=== PATIENT | female | born 1955 | race Caucasian/White ===

== ENCOUNTER → 2016-12-23 | Outpatient (CLI) | payer MEDICAID ==
[~2016-12-23] MED LIST: AMBIEN 10MG10 MG PO; AMBIEN10 MG PO; ATIVAN 0.50.5 MG/TAB PO; CALCITRIOL PO; CETIRIZINE; CLONAZEPAM0.125 MG PO; CLOPIDOGREL; CYMBALTA; CYMBALTA 30MG30 MG PO; DESYREL 100MG100 MG PO; DESYREL 50MG50 MG PO; EPA-CON500 MG PO; FAZACLO PO; FLEXERIL 1010 MG/TAB PO; FLEXERIL10 MG PO; FOLIC ACID 11 MG/TA1 PO; GRALISE600 MG PO; K-DUR 10 MEQ T10 MEQ PO; KLONOPIN 0.5MG0.5 MG PO; KLOR-CON M2020 MEQ PO; LAMICTAL150 MG PO; LEVOXYL0.1 MG PO; LIPITOR 80MG80 MG PO; MAGOX 400241.3 MG; METHOTREXA2.5 MG/TAB PO; MOBIC15 MG PO; MOBIC7.5 M1 PO; MYSOLINE 5050 MG/TAB PO; MYSOLINE50 MG PO; NEURONTIN300 MG PO; NEURONTIN300 MG/CAP PO; NEURONTIN600 MG/TAB PO; NIASPAN750 MG PO; NORCO 325 MG-101 TAB PO; NORCO 325 MG-51 TAB; OMEGA 31000 MG PO; OSCAL 500 TAB500 MG PO; OXYCONTIN 20MG20 MG PO; PEN-VEE K500 MG PO; PERCOCET 325 MG1 TA2 PO; PERCOCET 325 MG1 TAB PO; PHENERGAN25 MG RC; PLAQUENIL 200M200 MG PO; PLAVIX 75MG TAB75 MG PO; PREDNISONE20 MG PO; PRILOSEC 20MG20 MG PO; PRILOSEC10 MG PO; ROXICODONE30 MG PO; RT ADVAIR 228 DISKUS IH; S-2 INHALANT2.25%; SAVELLA100 MG PO; SIMVISTATIN; SKELAXIN 4400 MG/TAB PO; SKELAXIN 800MG800 MG PO; TRAZADONE HYDR100 MG PO; TRICOR145 MG PO; TYLENOL 325MG325 MG PO; ULTRAM 50MG TAB50 MG PO; VENTOLIN0.09 MG IH; VESICARE 5MG5 MG PO; VITAMIN D 1001000 IU PO; ZANTAC; ZANTAC 150MG T150 MG PO; ZANTAC 300300 MG PO; ZESTRIL 10MG10 MG PO; ZOCOR; ZOFRAN 4MG T4 MG/TAB PO; ZYRTEC 10MG10 MG PO; [UNRECOGNIZED DRUG - OTHER] PO
== END ==
LOC: MC.RAD 13:17
DX: Z12.31 Encounter for screening mammogram for malignant neoplasm of breast (principal)

== ENCOUNTER 2017-06-27 12:05 | Day surgery (SDC) | payer MEDICAID ==
[~2017-06-27] VITALS: Ht 165.1 cm; Wt 70.2 kg
[2017-06-27] MEDS ORDERED: DAZIDOX10 MG PO (12:21)
[2017-06-27] MEDS ORDERED: OXYCONTIN30 MG PO (12:21)
[2017-06-27 12:32] VITALS: BP 138/92; PULSE 85; TEMP 98.1
[2017-06-27 14:45] VITALS: BP 111/56; PULSE 87; TEMP 98
[2017-06-27 15:00] VITALS: BP 110/67; PULSE 76
[2017-06-27 15:15] VITALS: BP 128/80; PULSE 84
== END 2017-06-27 15:30 | disposition home or self-care (01) ==
LOC: SDCO 12:05
DX: K63.5 Polyp of colon (principal); K57.30 Diverticulosis of large intestine without perforation or abscess without bleeding; K64.0 First degree hemorrhoids; J44.9 Chronic obstructive pulmonary disease, unspecified; G47.33 Obstructive sleep apnea (adult) (pediatric); I10 Essential (primary) hypertension; K21.9 Gastro-esophageal reflux disease without esophagitis; M19.90 Unspecified osteoarthritis, unspecified site; Z88.6 Allergy status to analgesic agent; Z90.49 Acquired absence of other specified parts of digestive tract; Z79.01 Long term (current) use of anticoagulants; Z80.0 Family history of malignant neoplasm of digestive organs
CPT/HCPCS: OP; J2704; J7030

== ENCOUNTER → 2017-07-26 | Outpatient (CLI) | payer MEDICAID ==
[~2017-07-26] MED LIST changes: +DAZIDOX10 MG PO; +OXYCONTIN30 MG PO
== END ==
LOC: COL.RAD 08:15
DX: R74.8 Abnormal levels of other serum enzymes (principal)
CPT/HCPCS: A9585

== ENCOUNTER → 2017-12-21 | Outpatient (CLI) | payer MEDICAID ==
[~2017-12-21] MED LIST changes: +CALCIUM 600/VIT1 CAP PO; +FLAGYL500 MG PO; +SYNTHROID0.1 MG/TAB PO
== END ==
LOC: COL.PUL 11:19
DX: J43.8 Other emphysema (principal); R68.3 Clubbing of fingers; Z72.0 Tobacco use

== ENCOUNTER → 2017-12-22 | Outpatient (CLI) | payer MEDICAID ==
[2017-12-22] VITALS (12 sets, daily range): BP systolic 112–150; BP diastolic 77–86; PULSE 73–86
[~2017-12-22] VITALS: Ht 165.1 cm; Wt 67.0 kg
[2017-12-22 09:51] LABS: PROTHROMBIN TIME 11.5 SECONDS (9.7-12.8)
== END ==
LOC: COL.RAD 09:00
PROVIDERS: Nurse Practitioner Family
DX: R74.8 Abnormal levels of other serum enzymes (principal)
CPT/HCPCS: 25757

== ENCOUNTER 2019-04-02 06:04 | Day surgery (SDC) | payer MEDICAID ==
[2019-04-02] VITALS (11 sets, daily range): BP systolic 90–115; BP diastolic 57–85; PULSE 90–100; TEMP 98.8
[~2019-04-02] VITALS: Ht 165.2 cm; Wt 70.0 kg
[~2019-04-02 06:04] MED LIST changes: +D-2000 90 MG-201 TAB PO; +PROVENTIL0.09 MG/A1 IH
[2019-04-02 06:51] LABS: HEMOGLOBIN 13.5 g/dl (12.5-16.0); MEAN CELL VOLUME 90 fl (80.0-100.0); MEAN CORPUSCULAR HEMOGLOBIN 31 pg (27.0-31.0); MEAN CORPUSCULAR HGB CONC 34 g/dl (33.0-37.0); MEAN PLATELET VOLUME 10.2 fl (7.4-10.4); PLATELET COUNT 157 K/mm3 (130-400); RED BLOOD COUNT 4.43 M/mm3 (4.10-5.30); REDCELL DISTRIBUTION WIDTH-CV 13.8 % (11.5-14.5)
[2019-04-02 06:57] LABS: INR 1.1 (0.8-3.0); PROTHROMBIN TIME 12.4 SECONDS (9.7-12.8)
[2019-04-02 07:00] LABS: PARTIAL THROMBOPLASTIN TIME 38.9 SECONDS (26.0-37.0)
[2019-04-02 07:01] LABS: CALCIUM 7.7 mg/dL (8.4-10.2); CREATININE, serum 1.42 (0.52-1.25); POTASSIUM 4.1 mmol/L (3.4-5.0)
[2019-04-02] MEDS ORDERED: OXYCONTIN 20MG20 MG PO (07:07)
[2019-04-02] MEDS ORDERED: ANORO IH (07:09)
[2019-04-02] MEDS ORDERED: ARMONAIR RESPI55 MCG IH (07:10)
[2019-04-02] MEDS ORDERED: NYSTATIN POWDER30 GM TOP (07:11)
[2019-04-02] MEDS ORDERED: NARCAN4 MG NS (07:12)
[2019-04-02] MEDS ORDERED: NEXIUM 40MG40 MG PO (07:13)
[2019-04-02] MEDS ORDERED: KLOR-CON 1010 MEQ PO (07:14)
--- NOTE | 2019-04-02 08:50 | NUR ---
pt recieved from rn labor delivery via bed, family with her. pt is alert, no c/o, reviewed bedrest inst. with pt with verbal understanding. iv infusing at 200cc/hr. pt sips on coffee
--- NOTE | 2019-04-02 08:59 | NUR ---
PT [facility] TO [facility] FROM [facility] LAUNCH ROCKET SYSTEM CREWMEMBER AT THIS TIME. VS MONITORS CONNECTED; ALL VS'S WNL AT THIS TIME. PT A&O X3. IV FLUIDS RUNNING AT 200ML/HR PER DR NICHOLS. BEDSIDE HANDOFF TO GEORGE MARTIN AT THIS TIME. RIGHT FEMORAL ACCESS SITE ASSESSED; SITE FOUND WITHOUT BLEEDING, OOZING, BRUISING. SOFT TO PALPATION. DP PULSE +2 ON RIGHT FOOT. NO S/SX OF IMPAIRED CIRCULATION NOTED. EDUCATION PROVIDED TO PT ABOUT FLAT TIME AND MOVEMENT RESTRICTIONS. ALL QUESTIONS ANSWERED AT THIS TIME.
--- NOTE | 2019-04-02 09:35 | NUR ---
NEW ORDER RECIEVED FOR PAIN MED DUE TO BACK PAIN, PT RATES 5-6. OXYCODONE 10MG PO GIVEN. FAMILY IN ROOM, WATCHES TV
--- NOTE | 2019-04-02 11:00 | NUR ---
HOB elevated 30 degrees, tolerates well, pt states back pain at 3/10 now and feels better.
--- NOTE | 2019-04-02 11:30 | NUR ---
pt amb. in room, up to b/r, voided, site remains the same. Pt sits up, reviewed discharge inst. with her and [id number], on activity, site care, med list, precautions and 2 followup appts made in April for Dr Jackson and Dr James as ordered, with verbal understanding
--- NOTE | 2019-04-02 11:53 | NUR ---
int d'cd intact, pt is up in room dressed, discharged via w/c to car
== END 2019-04-02 11:54 | disposition home or self-care (01) ==
LOC: COL.CAR 06:04
PROVIDERS: Internal Medicine Interventional Cardiology
DX: I70.1 Atherosclerosis of renal artery (principal); N27.0 Small kidney, unilateral; R25.2 Cramp and spasm; E03.9 Hypothyroidism, unspecified; I71.4 Abdominal aortic aneurysm, without rupture; I73.9 Peripheral vascular disease, unspecified; K74.60 Unspecified cirrhosis of liver; J44.9 Chronic obstructive pulmonary disease, unspecified; N18.9 Chronic kidney disease, unspecified; Z90.49 Acquired absence of other specified parts of digestive tract; Z79.02 Long term (current) use of antithrombotics/antiplatelets; Z79.51 Long term (current) use of inhaled steroids; Z82.49 Family history of ischemic heart disease and other diseases of the circulatory system; Z80.0 Family history of malignant neoplasm of digestive organs; Z87.891 Personal history of nicotine dependence; Z88.5 Allergy status to narcotic agent
CPT/HCPCS: J1644; J2250; J3010; Q9967

== ENCOUNTER → 2019-05-22 | Outpatient (CLI) | payer MEDICAID ==
[~2019-05-22] MED LIST changes: +ANORO IH; +ARMONAIR RESPI55 MCG IH; +KLOR-CON 1010 MEQ PO; +NARCAN4 MG NS; +NEXIUM 40MG40 MG PO; +NYSTATIN POWDER30 GM TOP
== END ==
LOC: COL.RAD 11:30
DX: I65.23 Occlusion and stenosis of bilateral carotid arteries (principal); J43.9 Emphysema, unspecified
CPT/HCPCS: Q9967

== ENCOUNTER 2019-05-23 12:13 | Inpatient (IN) | payer MEDICAID ==
[2019-05-23] VITALS (274 sets, daily range): BP systolic 99–105; BP diastolic 53–66; PULSE 87–94; TEMP 97.5–98.4; O2SAT 70–100
[~2019-05-23] VITALS: Ht 165.1 cm; Wt 66.8 kg
[2019-05-23 12:46] LABS: HEMATOCRIT 38.8 % (37.0-47.0); HEMOGLOBIN 13.2 g/dl (12.5-16.0); MEAN CELL VOLUME 87 fl (80.0-100.0); MEAN CORPUSCULAR HEMOGLOBIN 30 pg (27.0-31.0); MEAN CORPUSCULAR HGB CONC 34 g/dl (33.0-37.0); MEAN PLATELET VOLUME 10.1 fl (7.4-10.4); PLATELET COUNT 145 K/mm3 (130-400); RED BLOOD COUNT 4.48 M/mm3 (4.10-5.30); REDCELL DISTRIBUTION WIDTH-CV 21.2 % (11.5-14.5)
[2019-05-23 12:54] LABS: INR 1.3 (0.8-3.0); PROTHROMBIN TIME 14.9 SECONDS (9.7-12.8)
[2019-05-23 13:05] LABS: BAND 14 % (0-10); EOSINOPHIL 1 % (0-4); LYMPHOCYTE 22 % (20.0-51.0); NEUTROPHILS 61 % (42.0-75.2); PLATELET ESTIMATE NORMAL (NORMAL)
[2019-05-23 13:06] LABS: ALANINE AMINOTRANSFERASE 14 U/L (9-52); ALBUMIN 2.4 gm/dL (3.5-5.0); ANION GAP 9 mmol/L (7-16); AST,SGOT 140 U/L (15-37); BILIRUBIN,TOTAL 2.4 mg/dL (0.0-1.0); BLOOD UREA NITROGEN 19 mg/dL (7-17); CALCIUM 7.8 mg/dL (8.4-10.2); CARBON DIOXIDE 17 mmol/L (22-30); CHLORIDE 104 mmol/L (98-107); CREATININE, serum 1.68 (0.52-1.25); GLUCOSE 70 mg/dL (74-106); POTASSIUM 4.2 mmol/L (3.4-5.0); SODIUM 130 mmol/L (137-145); TOTAL PROTEIN 7.3 gm/dL (6.4-8.2)
[2019-05-23 13:14] LABS: ALKALINE PHOSPHATASE 1031 U/L (50-136)
[2019-05-23 13:17] LABS: TROPONIN-I < 0.012 ng/mL (0.000-0.035)
--- NOTE | 2019-05-23 14:55 | NUR ---
PT ARRIVED FROM ER WITH COPD. PT ON OXYMASK. PT TRANSFERED TO ICU BED. PT PLACED ON ICU MONITORS. PT SHOWING SR. PT IS AXOX4. PT SATING LOW 90S. PT ORIENTED TO ROOM AND FLOOR
--- NOTE | 2019-05-23 16:30 | NUR ---
PRESENT ON THE FLOOR. PT NOTIFIED OF CONSULT. STATES HE WILL SEE IN THE AM.
[2019-05-23 18:48] LABS: ARTERIAL BLD GAS O2 SATURATION 96.9 % (92-100); ARTERIAL BLD GAS TCO2 CT 18.1; ARTERIAL BLOOD GAS BASE EXCESS -5.9 (-2-2); ARTERIAL BLOOD GAS HCO3 17.3 meq/L (22-26); ARTERIAL BLOOD GAS PCO2 27.4 mmHg (35-45); ARTERIAL BLOOD GAS pH 7.42 (7.35-7.45)
--- NOTE | 2019-05-23 19:35 | NUR ---
Report received from GEORGE Pierre.
--- NOTE | 2019-05-23 20:30 | NUR ---
Pt sitting up in bed eating dinner. Pt on 4L/oxymask, O2sat 90-92%. Assessment completed. Discussed POC r/t bipap mask, labs and medications on shift. Pt verbalized understanding. Call light in reach.
--- NOTE | 2019-05-23 22:00 | NUR ---
Pt back on bipap per request. VSS. Pt resting in bed. Lights dim in room. Call light in reach.
--- NOTE | 2019-05-23 23:10 | NUR ---
Bipap mask off, pt N/V. small amt emesis. Warm washcloth on pt's forehead for comfort. PRN zofran offered. Pt refuses zofran stating it makes her feel sick. Pt only request washcloth at this time. Pt placed on 4L/hiflow NC. O2sat low 90s.
[2019-05-24] VITALS (550 sets, daily range): BP systolic 99–118; BP diastolic 58–72; PULSE 84–99; TEMP 97–98; O2SAT 46–100
--- NOTE | 2019-05-24 00:15 | NUR ---
Pt watching tv in bed. States she can't fall back asleep. Pt up to [facility] with stand by assist. Steady gait. Pt unable to void at this time. Pt back to bed. Lights dim in room. Call light in reach.
[2019-05-24 04:31] LABS: ALBUMIN 2.4 gm/dL (3.5-5.0); BILIRUBIN,TOTAL 1.2 mg/dL (0.0-1.0); CALCIUM 7.3 mg/dL (8.4-10.2); CREATININE, serum 1.67 (0.52-1.25); POTASSIUM 4.2 mmol/L (3.4-5.0); TOTAL PROTEIN 7.2 gm/dL (6.4-8.2)
[2019-05-24 04:37] LABS: BASO % 0.2 % (0.0-2.0); GRAN % 71.5 % (42.2-75.2); HEMOGLOBIN 11.3 g/dl (12.5-16.0); LYMPH # 1.4 (1.2-3.4); LYMPH % 24.9 % (20.0-51.0); MEAN CELL VOLUME 88 fl (80.0-100.0); MEAN CORPUSCULAR HEMOGLOBIN 29 pg (27.0-31.0); MEAN CORPUSCULAR HGB CONC 33 g/dl (33.0-37.0); MEAN PLATELET VOLUME 10.4 fl (7.4-10.4); MONO # 0.1 (0.1-0.6); PLATELET COUNT 152 K/mm3 (130-400); RED BLOOD COUNT 3.88 M/mm3 (4.10-5.30); REDCELL DISTRIBUTION WIDTH-CV 21.2 % (11.5-14.5)
--- NOTE | 2019-05-24 08:00 | NUR ---
LAB NOTIFIED THAT 05/16 BC RETURNED POSITIVE FOR STAPH SPECIES. WILL NOTIFY DR STARKEY.
--- NOTE | 2019-05-24 08:00 | NUR ---
Report given to GEORGE Hernandez.
--- NOTE | 2019-05-24 08:45 | NUR ---
PT'S O2 SAT CONSISTENTLY <88% ON 4L HFNC. PT'S MOST RECENT PCO2 LOW AT 27.4. PT'S O2 INCREASED TO 5LHFNC. O2 SAT AFTER TITRATION 89%
[2019-05-24 08:56] LABS: CHOLESTEROL RISK RATIO 10.4
[2019-05-24 09:39] LABS: ARTERIAL BLD GAS O2 SATURATION 88.6 % (92-100); ARTERIAL BLD GAS TCO2 CT 17.4; ARTERIAL BLOOD GAS BASE EXCESS -7.2 (-2-2); ARTERIAL BLOOD GAS HCO3 16.6 meq/L (22-26); ARTERIAL BLOOD GAS PCO2 28.3 mmHg (35-45); ARTERIAL BLOOD GAS PO2 56.6 mmHg (80-100); ARTERIAL BLOOD GAS pH 7.39 (7.35-7.45)
--- NOTE | 2019-05-24 09:48 | NUR ---
DR SHANKS PRESENT IN IMCU. PROVIDER NOTIFIED OF CONSULT.
--- NOTE | 2019-05-24 09:54 | NUR ---
ACCORDING TO RECENT ABG PT'S O2 INCREASED TO 6LHFNC. DR STARKEY WOULD LIKE PATIENT TO BE SWITCHED TO AIRVO D/T PO2 OF 56.6.
--- NOTE | 2019-05-24 10:13 | NUR ---
DR SHANKS PRESENT TO ASSESS PATIENT.
--- NOTE | 2019-05-24 10:24 | NUR ---
DR SHANKS RECOMMENDS TO D/C IVF D/T FLUID OVERLOAD. DR SHANKS WOULD LIKE PATIENT TO RECEIVE DOSE OF LASIX.
--- NOTE | 2019-05-24 11:33 | NUR ---
Initial visit; Patient and her daughter thanked Auto Service Instructor for looking in on her and offering comfort and prayer and letting her know she will be offered Holy Communion while she is hospitalized.
--- NOTE | 2019-05-24 11:35 | NUR ---
CONTACTED DR DOMINGUEZ OFFICE PER DR NANCE TO OBTAIN BASELINE LIVER ENZYME LEVELS. NO ANSWER FROM NURSE'S PHONE. LEFT VOICEMAIL.
--- NOTE | 2019-05-24 11:40 | NUR ---
MURPHY tyson attended clinical rounds with the team. Nephrology consulted. After rounds MURPHY tyson met with the patient and the patient's [id number], Kayla to complete initial intake. MURPHY tyson obtained patient's permission to have Kayla present during intake. The patient lives alone in [place] but reports she has family living within a few blocks of her home and she states, "I really do not live alone someone comes to my house everyday." The patient uses oxygen (supplies from [employer]) at night and with excertion. The patient informed MURPHY tyson that she needed more oxygen at home. MURPHY tyson contacted [employer] and they will bring tanks to the patient's room to take home. The patient's PCP is Dr. Robles and patient receives medications from [facility] with no difficulties. The patient does not have advanced directives in the EMR but reports has them completed. However, she wants to update them. DPOA-HC form provided. The patient has transportation home at discharge. customer services manager will continue to follow to ensure a safe discharge.
--- NOTE | 2019-05-24 11:41 | NUR ---
KARLA, NURSE WITH DR DOMINGUEZ, RETURNED PHONE CALL AND IS GOING TO FAX OVER PATIENT'S RECENT LAB WORK TO ESTABLISH BASELINE FOR LIVER FUNCTION.
--- NOTE | 2019-05-24 12:32 | NUR ---
DR STARKEY AND DR SHANKS NOTIFIED OF MOST RECENT LACTIC ACID OF 4.4. DR STARKEY WOULD LIKE A VBG, INITIATE SEPSIS PROTOCOL, AND TO CLEAR WITH DR SHANKS FOR PATIENT TO GET A PICC LINE. DR SHANKS AGREEABLE TO PICC LINE. CHHAYA ORNELAS NOTIFIED.
[2019-05-24 15:42] LABS: ANION GAP 10 mmol/L (7-16); BLOOD UREA NITROGEN 23 mg/dL (7-17); CARBON DIOXIDE 17 mmol/L (22-30); CHLORIDE 107 mmol/L (98-107); CREATININE, serum 1.64 (0.52-1.25); GLUCOSE 136 mg/dL (74-106); POTASSIUM 3.8 mmol/L (3.4-5.0); SALICYLATE 1.1 mg/dL; SODIUM 133 mmol/L (137-145)
[2019-05-24 15:53] LABS: TROPONIN-I < 0.012 ng/mL (0.000-0.035)
--- NOTE | 2019-05-24 17:45 | NUR ---
DR STARKEY NOTIFIED OF PATIENT'S LACTIC ACID COMING BACK AT 4.[address] STARKEY WANTS TO REPEAT LACTIC AND ABG AT 1999. RT NOTIFIED. DR STARKEY ALSO WANTS NIGHT HOSPITALIST MADE AWARE. JEREMY CALLED AND UPDATED.
--- NOTE | 2019-05-24 19:50 | NUR ---
Patient assessment completed and charted at this time, please see documentation for details. Patient resting in bed, family at bedside. Patient tolerating AirVo well, states she is able to breath easier. Patient has no additional concerns to report at this time, no further questions.
[2019-05-24 20:36] LABS: ARTERIAL BLD GAS O2 SATURATION 91.7 % (92-100); ARTERIAL BLD GAS TCO2 CT 17.5; ARTERIAL BLOOD GAS BASE EXCESS -8.6 (-2-2); ARTERIAL BLOOD GAS HCO3 16.5 meq/L (22-26); ARTERIAL BLOOD GAS PCO2 32.7 mmHg (35-45); ARTERIAL BLOOD GAS PO2 67.2 mmHg (80-100); ARTERIAL BLOOD GAS pH 7.32 (7.35-7.45)
[2019-05-24 23:06] LABS: ARTERIAL BLD GAS O2 SATURATION 97.5 % (92-100); ARTERIAL BLD GAS TCO2 CT 18.4; ARTERIAL BLOOD GAS BASE EXCESS -8.2 (-2-2); ARTERIAL BLOOD GAS HCO3 17.3 meq/L (22-26); ARTERIAL BLOOD GAS PCO2 35.6 mmHg (35-45); ARTERIAL BLOOD GAS PO2 102.5 mmHg (80-100); ARTERIAL BLOOD GAS pH 7.31 (7.35-7.45)
[2019-05-25] VITALS (437 sets, daily range): BP systolic 91–124; BP diastolic 55–82; PULSE 79–93; TEMP 97.7–98.1; O2SAT 73–100
[2019-05-25 01:12] LABS: ARTERIAL BLD GAS O2 SATURATION 95.4 % (92-100); ARTERIAL BLD GAS TCO2 CT 18.7; ARTERIAL BLOOD GAS HCO3 17.5 meq/L (22-26); ARTERIAL BLOOD GAS PCO2 35.9 mmHg (35-45); ARTERIAL BLOOD GAS PO2 81.4 mmHg (80-100); ARTERIAL BLOOD GAS pH 7.31 (7.35-7.45)
[2019-05-25 07:11] LABS: ALBUMIN 2.2 gm/dL (3.5-5.0); BILIRUBIN,TOTAL 0.8 mg/dL (0.0-1.0); CALCIUM 6.8 mg/dL (8.4-10.2); CREATININE, serum 1.56 (0.52-1.25); POTASSIUM 3.9 mmol/L (3.4-5.0); TOTAL PROTEIN 6.7 gm/dL (6.4-8.2)
[2019-05-25 07:29] LABS: ARTERIAL BLD GAS O2 SATURATION 91.3 % (92-100); ARTERIAL BLOOD GAS BASE EXCESS -8.3 (-2-2); ARTERIAL BLOOD GAS HCO3 17.4 meq/L (22-26); ARTERIAL BLOOD GAS PCO2 36.6 mmHg (35-45); ARTERIAL BLOOD GAS pH 7.29 (7.35-7.45)
[2019-05-25 12:00] LABS: ARTERIAL BLD GAS TCO2 CT 16.6; ARTERIAL BLOOD GAS BASE EXCESS -10.2 (-2-2); ARTERIAL BLOOD GAS HCO3 15.5 meq/L (22-26); ARTERIAL BLOOD GAS PCO2 33.9 mmHg (35-45); ARTERIAL BLOOD GAS pH 7.28 (7.35-7.45)
[2019-05-25 12:49] LABS: BASO % 0.1 % (0.0-2.0); GRAN # 10.4 (1.4-6.5); LYMPH # 0.6 (1.2-3.4); LYMPH % 5.6 % (20.0-51.0); MEAN CELL VOLUME 91 fl (80.0-100.0); MEAN CORPUSCULAR HGB CONC 33 g/dl (33.0-37.0); MEAN PLATELET VOLUME 10.4 fl (7.4-10.4); MONO # 0.4 (0.1-0.6); MONO % 3.6 % (1.7-9.3); PLATELET COUNT 152 K/mm3 (130-400); REDCELL DISTRIBUTION WIDTH-CV 21.7 % (11.5-14.5)
[2019-05-25 12:53] LABS: HEMOGLOBIN 9.5 g/dl (12.5-16.0); MEAN CORPUSCULAR HEMOGLOBIN 30 pg (27.0-31.0)
[2019-05-25 14:19] LABS: INR 1.2 (0.8-3.0); PROTHROMBIN TIME 14.1 SECONDS (9.7-12.8)
--- NOTE | 2019-05-25 14:52 | NUR ---
Dr. Mak called and message left with call back numer to notify of consult.
--- NOTE | 2019-05-25 17:14 | NUR ---
Dr. Mak returns call regarding consult and update provided.
[2019-05-25 21:26] LABS: CALCIUM 6.5 mg/dL (8.4-10.2); CREATININE, serum 1.6 (0.52-1.25); MAGNESIUM 1.7 mg/dL (1.6-2.3); PHOSPHOROUS 4.2 mg/dL (2.5-4.5); POTASSIUM 4.1 mmol/L (3.4-5.0)
[2019-05-25 21:58] LABS: ARTERIAL BLD GAS O2 SATURATION 93.2 % (92-100); ARTERIAL BLD GAS TCO2 CT 18.4; ARTERIAL BLOOD GAS BASE EXCESS -7.8 (-2-2); ARTERIAL BLOOD GAS HCO3 17.4 meq/L (22-26); ARTERIAL BLOOD GAS PCO2 34.3 mmHg (35-45); ARTERIAL BLOOD GAS PO2 68.2 mmHg (80-100); ARTERIAL BLOOD GAS pH 7.32 (7.35-7.45)
[2019-05-26] VITALS (741 sets, daily range): BP systolic 101–119; BP diastolic 61–64; PULSE 78–90; TEMP 97.4–98.1; O2SAT 38–100
[2019-05-26 04:51] LABS: ARTERIAL BLD GAS O2 SATURATION 94.9 % (92-100); ARTERIAL BLD GAS TCO2 CT 22.2; ARTERIAL BLOOD GAS BASE EXCESS -4.7 (-2-2); ARTERIAL BLOOD GAS HCO3 20.9 meq/L (22-26); ARTERIAL BLOOD GAS PCO2 40.7 mmHg (35-45); ARTERIAL BLOOD GAS PO2 78.9 mmHg (80-100); ARTERIAL BLOOD GAS pH 7.33 (7.35-7.45)
[2019-05-26 05:30] LABS: BASO % 0.1 % (0.0-2.0); GRAN # 6.8 (1.4-6.5); GRAN % 85.3 % (42.2-75.2); LYMPH # 0.6 (1.2-3.4); LYMPH % 7.7 % (20.0-51.0); MEAN CELL VOLUME 90 fl (80.0-100.0); MEAN CORPUSCULAR HGB CONC 33 g/dl (33.0-37.0); MEAN PLATELET VOLUME 10.3 fl (7.4-10.4); MONO # 0.5 (0.1-0.6); MONO % 6.1 % (1.7-9.3); PLATELET COUNT 141 K/mm3 (130-400); RED BLOOD COUNT 3.17 M/mm3 (4.10-5.30); REDCELL DISTRIBUTION WIDTH-CV 21.9 % (11.5-14.5)
[2019-05-26 05:33] LABS: HEMATOCRIT 28.4 % (37.0-47.0); HEMOGLOBIN 9.3 g/dl (12.5-16.0); MEAN CORPUSCULAR HEMOGLOBIN 29 pg (27.0-31.0)
[2019-05-26 05:41] LABS: ALBUMIN 2.3 gm/dL (3.5-5.0); BILIRUBIN,TOTAL 1.1 mg/dL (0.0-1.0); CALCIUM 6.5 mg/dL (8.4-10.2); CREATININE, serum 1.66 (0.52-1.25); POTASSIUM 3.9 mmol/L (3.4-5.0); TOTAL PROTEIN 6.5 gm/dL (6.4-8.2)
[2019-05-26 05:46] LABS: INR 1.3 (0.8-3.0); PROTHROMBIN TIME 15.6 SECONDS (9.7-12.8)
[2019-05-27] VITALS (398 sets, daily range): BP systolic 108–125; BP diastolic 63–76; PULSE 79–104; TEMP 97.3–97.9; O2SAT 74–100
[2019-05-27 05:16] LABS: ARTERIAL BLD GAS O2 SATURATION 95.3 % (92-100); ARTERIAL BLOOD GAS BASE EXCESS -4.7 (-2-2); ARTERIAL BLOOD GAS HCO3 20.7 meq/L (22-26); ARTERIAL BLOOD GAS PCO2 39.7 mmHg (35-45); ARTERIAL BLOOD GAS PO2 77.5 mmHg (80-100); ARTERIAL BLOOD GAS pH 7.34 (7.35-7.45)
[2019-05-27 05:17] LABS: MEAN CELL VOLUME 91 fl (80.0-100.0); MEAN CORPUSCULAR HGB CONC 32 g/dl (33.0-37.0); MEAN PLATELET VOLUME 10.9 fl (7.4-10.4); PLATELET COUNT 145 K/mm3 (130-400); RED BLOOD COUNT 3.26 M/mm3 (4.10-5.30); REDCELL DISTRIBUTION WIDTH-CV 21.9 % (11.5-14.5)
[2019-05-27 05:18] LABS: HEMATOCRIT 29.8 % (37.0-47.0); HEMOGLOBIN 9.5 g/dl (12.5-16.0); MEAN CORPUSCULAR HEMOGLOBIN 29 pg (27.0-31.0)
[2019-05-27 05:26] LABS: ALBUMIN 2.6 gm/dL (3.5-5.0); BILIRUBIN,TOTAL 1.4 mg/dL (0.0-1.0); CREATININE, serum 1.79 (0.52-1.25); POTASSIUM 4.3 mmol/L (3.4-5.0); TOTAL PROTEIN 6.7 gm/dL (6.4-8.2)
[2019-05-27 05:32] LABS: INR 1.3 (0.8-3.0); PROTHROMBIN TIME 14.8 SECONDS (9.7-12.8)
[2019-05-27 06:15] LABS: ANISOCYTOSIS 3+; BAND 9 % (0-10); LYMPHOCYTE 7 % (20.0-51.0); METAMYELOCYTE 1 % (0-0); NEUTROPHILS 81 % (42.0-75.2); PLATELET ESTIMATE NORMAL (NORMAL)
[2019-05-27 06:16] LABS: OVALOCYTES 1+; TARGET CELLS 1+
--- NOTE | 2019-05-27 12:40 | NUR ---
Report called to GEORGE Silva.
--- NOTE | 2019-05-27 13:08 | NUR ---
LICENSED PHYSICAL THERAPY ASSISTANT student attended clinical rounds with the team. The patient reports that [employer] delivered her oxygen tanks on Monday, 05/24. The patient is to transfer out of ICU to the floor this day.
[2019-05-28] VITALS (7 sets, daily range): BP systolic 100–149; BP diastolic 34–73; PULSE 92–104; TEMP 97.6–97.9
--- NOTE | 2019-05-28 03:12 | NUR ---
PATIENT DOING WELL TONIGHT. C/O BACK PAIN, PRN JORGE AND SCHEDULED OXYCONTIN GIVEN. O2 INFUSING VIA AIRVO MANAGED BY RT. TOOK SCHEDULED MEDICATIONS PRESCRIBED. DID NOT NEED ANY INSULIN, WBG 139. PICC TO CHRISTOPH FLUSHED WITH GOOD BLOOD RETURN. DID HAVE SOME NAUSEA, AND WAS FOUND DRY HEAVING IN ROOM. NO VOMITING NOTED. PRN ZOFRAN PUSHED, PATIENT FEELING MUCH BETTER. NO FURTHER NEEDS AT THIS TIME. WILL CONTINUE TO MONITOR.
[2019-05-28 06:28] LABS: MEAN CELL VOLUME 91 fl (80.0-100.0); MEAN CORPUSCULAR HGB CONC 33 g/dl (33.0-37.0); MEAN PLATELET VOLUME 10.8 fl (7.4-10.4); PLATELET COUNT 147 K/mm3 (130-400); RED BLOOD COUNT 3.17 M/mm3 (4.10-5.30); REDCELL DISTRIBUTION WIDTH-CV 21.7 % (11.5-14.5)
[2019-05-28 06:32] LABS: HEMATOCRIT 28.7 % (37.0-47.0); HEMOGLOBIN 9.4 g/dl (12.5-16.0); MEAN CORPUSCULAR HEMOGLOBIN 30 pg (27.0-31.0)
[2019-05-28 07:45] LABS: ANISOCYTOSIS 2+; BAND 6 % (0-10); LYMPHOCYTE 7 % (20.0-51.0); METAMYELOCYTE 3 % (0-0); NEUTROPHILS 72 % (42.0-75.2); TARGET CELLS 1+
[2019-05-28 07:46] LABS: PLATELET ESTIMATE NORMAL (NORMAL)
[2019-05-28 07:54] LABS: ALBUMIN 2.5 gm/dL (3.5-5.0); BILIRUBIN,TOTAL 1.5 mg/dL (0.0-1.0); CALCIUM 7.1 mg/dL (8.4-10.2); CREATININE, serum 1.68 (0.52-1.25); POTASSIUM 3.7 mmol/L (3.4-5.0); TOTAL PROTEIN 6.4 gm/dL (6.4-8.2)
--- NOTE | 2019-05-28 19:50 | NUR ---
Shift assessment complete. Pt resting in bed, awake, a&o, cooperative c cares. Pt reports continued chronic back pain rated 8/10; PRN pain caregivers non medical per pt request. Pt denies any other c/o. Airvo in place, pt christian well. Tele in place. PICC noted to R upper arm, patenet c good blood return from both ports. Pt denies further needs. Call light in reach, will continue to monitor.
[2019-05-29] VITALS (7 sets, daily range): BP systolic 104–133; BP diastolic 51–81; PULSE 72–104; TEMP 97.7–99.1
[2019-05-29 05:33] LABS: MEAN CELL VOLUME 91 fl (80.0-100.0); MEAN CORPUSCULAR HGB CONC 33 g/dl (33.0-37.0); MEAN PLATELET VOLUME 9.6 fl (7.4-10.4); PLATELET COUNT 121 K/mm3 (130-400); REDCELL DISTRIBUTION WIDTH-CV 21.7 % (11.5-14.5)
[2019-05-29 05:34] LABS: HEMATOCRIT 27.2 % (37.0-47.0); MEAN CORPUSCULAR HEMOGLOBIN 30 pg (27.0-31.0)
[2019-05-29 05:43] LABS: ALBUMIN 2.3 gm/dL (3.5-5.0); BILIRUBIN,TOTAL 1.5 mg/dL (0.0-1.0); CALCIUM 7.2 mg/dL (8.4-10.2); CREATININE, serum 1.56 (0.52-1.25); POTASSIUM 3.4 mmol/L (3.4-5.0); TOTAL PROTEIN 6.1 gm/dL (6.4-8.2)
[2019-05-29 05:48] LABS: ARTERIAL BLD GAS O2 SATURATION 88.9 % (92-100); ARTERIAL BLD GAS TCO2 CT 26.4; ARTERIAL BLOOD GAS BASE EXCESS 1.1 (-2-2); ARTERIAL BLOOD GAS HCO3 25.2 meq/L (22-26); ARTERIAL BLOOD GAS PCO2 37.9 mmHg (35-45); ARTERIAL BLOOD GAS PO2 54.1 mmHg (80-100); ARTERIAL BLOOD GAS pH 7.44 (7.35-7.45)
[2019-05-29 06:04] LABS: ANISOCYTOSIS 2+; BAND 7 % (0-10); LYMPHOCYTE 9 % (20.0-51.0); METAMYELOCYTE 4 % (0-0); NEUTROPHILS 77 % (42.0-75.2); NUCLEATED RED BLOOD CELL 1 (0-6); PLATELET ESTIMATE DECREASED (NORMAL)
--- NOTE | 2019-05-29 09:44 | NUR ---
Pt assessment completed and charted. Pt A&O, sitting in bed, independent in room. Pt currently on 15L on airvo, breathing is even and unlabored at rest, labored after walking w/ therapy. UL bilaterally clear, LL bilaterally diminished. Pt c/o chronic back pain, rating it 7/10, requesting pain medication. Morning medications administered per JUL, PRN pain medication administered. Pt has CHRISTOPH PICC, both ports flush well w/ good blood return. Pulses strong bilaterally. BLE 1-2+ edema noted. BUE bruising noted from blood draws. Pt denies any chest pain, N/V/D. No other concerns expressed at this time. Call light within reach.
--- NOTE | 2019-05-29 16:30 | NUR ---
Pt requesting pain medication, rating pain at 8/10. Per pt oxycodone works better. Pt is A&O, sitting in bed. Denies other needs at this time. Family at bedside.
--- NOTE | 2019-05-29 16:50 | NUR ---
W[employer] Plant Supervisor met with patient to review PT/OT recommendation for SNF or Home Health. Patient states she does not want to go to a SNF but was open to HH. SW provided Medicare.gov list of HH agencies. [facility]. [facility] contacted [facility] and faxed referral. Patient states she has a lot of local, family support. SW to continue to follow.
--- NOTE | 2019-05-29 16:51 | NUR ---
Freight Coordinator attended clinical rounds with the team. Hospitalist recommending [facility]. SW met with patient and provided Medicare.gov list of [facility]. Patient [facility]. SW contacted Will at [facility] and faxed referral. SW contacted [facility] to provide update on discharge plan. SW to continue to follow.
--- NOTE | 2019-05-29 19:16 | NUR ---
Pt sitting in bed, family at bedside. Report given to GEORGE Mcqueen. No concerns expressed at this time.
--- NOTE | 2019-05-29 20:50 | NUR ---
Resting in bed. Assessment complete. Bases bilaterally dimished with faint crackles heard. No shortness of breath at this time. Heart sounds normal. Bowels active x4. Pulses present throughout. Bilateral lower leg edema +2 present. Reports 4/10 back pain. Given scheduled oxycontin. PICC to right upper arm flushed without complications. Patient currently on airvo at 35 liters with FiO2 of 50%. Denies needs at this time. Call light in reach.
[2019-05-30 02:53] VITALS: BP 111/57; PULSE 108; TEMP 98.2
--- NOTE | 2019-05-30 02:59 | NUR ---
Reports 5/10 back pain. Requested PRN oxycodone. Provided to patient. Request "something for constipation." Educated patient to speak with hospitalist in AM. Denies other needs. Call light in reach.
--- NOTE | 2019-05-30 06:22 | NUR ---
Patient reports "gown wet." Upon assessment left breast red and excoriated. Patient reports during hospital stay and edema breast became enlarged with drainage and hospitalist aware. Currently "oozing" from stretch montalvo. Gown changed at this time. Will pass on to next shift. Received x1 dose of PRN oxycodone for pain throughout night. Otherwise uneventful. Denies needs this AM. Call light in reach.
--- NOTE | 2019-05-30 07:18 | NUR ---
Report given to GEORGE Flores
--- NOTE | 2019-05-30 07:36 | NUR ---
PT VERY SOB AFTER GOING TO BATHROOM. COMMODE PLACED AT BEDSIDE BY RT. PT FELT A LITTLE BETTER POST TX, SPO2 STILL IN UPPER 80S. PT STATED SHE GOT REALLY COLD AFTER GETTING UP AND SHIVERED THROUGHOUT TIME RT WAS PRESENT. RN NOTIFIED.
[2019-05-30 08:41] VITALS: BP 165/73; PULSE 117; TEMP 98.7
[2019-05-30 13:00] VITALS: BP 105/59; PULSE 115; TEMP 98.8
--- NOTE | 2019-05-30 13:06 | NUR ---
Manager Night spoke with Will who advised they are working on obtaining authorization from [employer]. Will requested SW re-fax referral per [employer]'s request. URIEL faxed the referral again. SW to continue to follow.
[2019-05-30 16:45] VITALS: BP 97/74; PULSE 103; TEMP 97.8
--- NOTE | 2019-05-30 19:09 | NUR ---
Report received from GEORGE Flores
--- NOTE | 2019-05-30 19:13 | NUR ---
PT HAD UNEVENTFUL DAY. HAS NEEDED SOME PAIN MEDS FOR CHRONIC PAIN. RT HAD TO INCREASE FI02 DUE TO LOW SATS, ADVANCED FI02 TO 60 SATS WHERE UP TO 89% AFTERWARDS.
[2019-05-30 19:38] VITALS: BP 100/63; PULSE 98; TEMP 98.4
--- NOTE | 2019-05-30 21:00 | NUR ---
Sitting in bed. Assessment complete. Lungs diminshed throughout. Heart sounds normal. Bowels active x4. Pulses present throughout. Bilateral lower leg edema +2. Left breast excoriated and wheeping. Bilateral arm bruises with abrasions present. PICC to right upper arm flushed without complications. Reports 4/10 back pain at this time. Provided with scheduled oxycodone. Denies other needs at this time. Call light in reach.
--- NOTE | 2019-05-30 22:31 | NUR ---
Rates pain 6/10 back pain . Provided with PRN oxycodone. Denies other needs at this time.
[2019-05-31] VITALS (8 sets, daily range): BP systolic 96–109; BP diastolic 34–64; PULSE 93–100; TEMP 97.7–98
--- NOTE | 2019-05-31 01:50 | NUR ---
Resting in bed asleep. Call light in reach.
--- NOTE | 2019-05-31 02:37 | NUR ---
Respiratory therapy reports patient vomitting. Upon assessment patient reports breathing treatments cause nasuea. Provided with PRN zofran at this time. Will monitor.
--- NOTE | 2019-05-31 05:26 | NUR ---
Reports 6/10 back pain. Provided with PRN oxycodone for pain. Denies other needs at this time. Call light in reach.
--- NOTE | 2019-05-31 06:13 | NUR ---
Patient had one episode of emesis. Required x2 doses of PRN oxycodone for back pain. Otherwise uneventful night. Resting in bed this AM. Call light in reach.
--- NOTE | 2019-05-31 06:48 | NUR ---
Report given to GEORGE Silva
[2019-05-31 08:01] LABS: MEAN CELL VOLUME 92 fl (80.0-100.0); MEAN CORPUSCULAR HGB CONC 32 g/dl (33.0-37.0); MEAN PLATELET VOLUME 11.7 fl (7.4-10.4); PLATELET COUNT 88 K/mm3 (130-400); RED BLOOD COUNT 3.12 M/mm3 (4.10-5.30); REDCELL DISTRIBUTION WIDTH-CV 22.1 % (11.5-14.5)
[2019-05-31 08:04] LABS: HEMATOCRIT 28.7 % (37.0-47.0); HEMOGLOBIN 9.3 g/dl (12.5-16.0); MEAN CORPUSCULAR HEMOGLOBIN 30 pg (27.0-31.0)
[2019-05-31 08:28] LABS: CALCIUM 7.3 mg/dL (8.4-10.2); CREATININE, serum 1.54 (0.52-1.25); POTASSIUM 3.7 mmol/L (3.4-5.0)
[2019-05-31 08:54] LABS: ANISOCYTOSIS 1+; BAND 10 % (0-10); HYPOCHROMIA 1+; LYMPHOCYTE 18 % (20.0-51.0); METAMYELOCYTE 4 % (0-0); MYELOCYTE 2 % (0-0); NEUTROPHILS 60 % (42.0-75.2); PLATELET ESTIMATE DECREASED (NORMAL)
--- NOTE | 2019-05-31 09:46 | NUR ---
CALL FROM INFECTIOUS DISEASE. REVIEWED PATIENT CHART AND CONDITION. nO NEW ORDERS RECEIVED AT THIS TIME.
--- NOTE | 2019-05-31 09:47 | NUR ---
AM ASSESSMENT COMPLETED. SEE EMAR FOR MEDICATIONS ADMINISTERED. A/O X4. ATTITUDE CALM AND PLEASANT. NO SHORTNESS OF BREATH/INCREASE WORK OF BREATHING AT REST. DOES HAVE C/O OF DYSPNEA WITH ANY EXCERTION. RT MANAGING AIR VO. SEE FLOW SHEET FOR DOCUMENTED SPO2 SATURATIONS. C/O LOWER BACK PAIN. SEE EMAR FOR MEDICATION ADMINISTERED. LUNG SOUNDS DIMINISHED THROUGHOUT WITH POOR AIR EXCHANGE. NSR/ST ON TELEMETRY. NO C/O OF CHEST PAIN. PATIENT HAS NO CONCERNS AT THIS TIME.
--- NOTE | 2019-05-31 10:30 | NUR ---
PICC intact right upper arm. With sterile technique right upper arm PICC dressing change done with insertion site cleansed with ChloraPrep 1, chlorhexidine impregnated disc applied, skin prep, StatLock, and Tegaderm applied. No signs or symptoms of IV complications noted. No concerns voiced. Arm wrapped with Pan to protect catheter.
--- NOTE | 2019-05-31 11:12 | NUR ---
Wood Grinder Operator was contacted by Will at [facility] who advised they are able to medically accept. Will states they are now waiting on a contract to be signed with [facility]. Will advised he is looking at this weekend for admission.
--- NOTE | 2019-05-31 20:19 | NUR ---
ASSESSMENT COMPLETE. RESTING IN BED. C/O BACK PAIN. PRN PAIN EDGE GRINDER. INDEPENDENT TO BATHROOM. DENIES NEEDS AT THIS TIME.
[2019-06-01 03:09] VITALS: BP 103/50; PULSE 86; TEMP 97.9
[2019-06-01 07:50] VITALS: BP 118/63; PULSE 104; TEMP 97.5
[2019-06-01 07:59] LABS: CALCIUM 7.5 mg/dL (8.4-10.2); CREATININE, serum 1.49 (0.52-1.25); POTASSIUM 3.8 mmol/L (3.4-5.0)
[2019-06-01 12:19] VITALS: BP 114/64; PULSE 100; TEMP 98.3
[2019-06-01 15:25] VITALS: BP 106/55; PULSE 99; TEMP 98.2
--- NOTE | 2019-06-01 19:50 | NUR ---
Patient assessed at this time. Alert and oriented, and able to make needs known. Complained of level 5 pain to back. Given scheduled pain medication. Double lumen PICC to RUE, Dressing CDI. Site without redness, warmth, swelling, and pain. Reports SOB and dyspnea with exertion. Continues to wear airvo per orders. LS CTA. Respirations even and unlabored. Occasional most cough. Reports sputum is clear, unable to observe. HRR. Telemetry in place: NS. BSAx4. Abdomen soft and non-tender. Generalized edema. L breast swollen, red, and painful. R breast pink. Redness to left hip area as well. Voices no questions, needs, or concerns at this time. Call light is within reach.
[2019-06-01 20:05] VITALS: BP 113/66; PULSE 95; TEMP 97.5
--- NOTE | 2019-06-01 20:30 | NUR ---
Patient continuing to have pain. Reports pain is at a 6 and requested PRN Roxicodone. Given per PRN orders.
[2019-06-02 01:41] VITALS: BP 117/71; PULSE 95; TEMP 97.6
--- NOTE | 2019-06-02 02:02 | NUR ---
Patient complaining of level 7 pain, and nausea. Given PRN Roxicodone and Zofran as requested at this time.
--- NOTE | 2019-06-02 05:25 | NUR ---
Patient resting in bed with call light within reach. No further complaints of pain, discomfort, or nausea at this time.
[2019-06-02 07:18] LABS: MEAN CELL VOLUME 90 fl (80.0-100.0); MEAN CORPUSCULAR HGB CONC 33 g/dl (33.0-37.0); MEAN PLATELET VOLUME 11.4 fl (7.4-10.4); PLATELET COUNT 66 K/mm3 (130-400); RED BLOOD COUNT 3.02 M/mm3 (4.10-5.30); REDCELL DISTRIBUTION WIDTH-CV 21.4 % (11.5-14.5)
[2019-06-02 07:26] LABS: CALCIUM 7.7 mg/dL (8.4-10.2); CREATININE, serum 1.41 (0.52-1.25); POTASSIUM 3.8 mmol/L (3.4-5.0)
[2019-06-02 07:34] VITALS: BP 110/66; PULSE 91; TEMP 97.4
[2019-06-02 08:04] LABS: HEMATOCRIT 27.2 % (37.0-47.0); HEMOGLOBIN 8.9 g/dl (12.5-16.0); MEAN CORPUSCULAR HEMOGLOBIN 29 pg (27.0-31.0)
[2019-06-02 10:49] LABS: ANISOCYTOSIS 1+; BAND 12 % (0-10); HYPOCHROMIA 1+; LYMPHOCYTE 14 % (20.0-51.0); METAMYELOCYTE 2 % (0-0); NEUTROPHILS 68 % (42.0-75.2); PLATELET ESTIMATE DECREASED (NORMAL); TARGET CELLS 1+
[2019-06-02 13:56] VITALS: BP 101/53; PULSE 54; TEMP 98.2
[2019-06-02 15:49] VITALS: BP 119/66; PULSE 87; TEMP 98
[2019-06-02 19:45] VITALS: BP 117/63; PULSE 93; TEMP 97.8
--- NOTE | 2019-06-02 20:15 | NUR ---
Shift assessment complete. Pt resting in bed, awake, a&o, cooperative c cares. Pt reports continued chronic pain to back/hips rated 6/10; scheduled certified medical coding specialist per orders. Pt denies any other c/o at this time. PICC noted to R upper arm, patent c good blood return. Tele in place. O2 per high flow NC, pt christian well. Pt denies further needs. Call light in reach, will continue to monitor.
[2019-06-02 23:59] VITALS: BP 107/68; PULSE 101; TEMP 98.7
[2019-06-03] VITALS (440 sets, daily range): BP systolic 71–149; BP diastolic 34–101; PULSE 92–113; TEMP 97.6–99; O2SAT 73–100
--- NOTE | 2019-06-03 05:35 | NUR ---
PT DESATS AND GETS SOB EVERY TIME SHE GETS UP TO USE THE RESTROOM AND WITH ANY ACTIVITY. DESATS INTO LOW 70s. RECOVERS AFTER REST. PRN TX GIVEN AFTER UP TO RESTROOM AND PT SOB PER RN REQUEST.
[2019-06-03 06:25] LABS: MEAN CELL VOLUME 91 fl (80.0-100.0); MEAN CORPUSCULAR HEMOGLOBIN 30 pg (27.0-31.0); MEAN CORPUSCULAR HGB CONC 33 g/dl (33.0-37.0); MEAN PLATELET VOLUME 12.4 fl (7.4-10.4); PLATELET COUNT 53 K/mm3 (130-400); RED BLOOD COUNT 3.36 M/mm3 (4.10-5.30); REDCELL DISTRIBUTION WIDTH-CV 21.4 % (11.5-14.5)
[2019-06-03 06:30] LABS: CREATININE, serum 1.39 (0.52-1.25); POTASSIUM 4.3 mmol/L (3.4-5.0)
[2019-06-03 06:32] LABS: HEMATOCRIT 30.4 % (37.0-47.0)
[2019-06-03 08:01] LABS: BAND 25 % (0-10); HYPOCHROMIA 1+; LYMPHOCYTE 12 % (20.0-51.0); METAMYELOCYTE 1 % (0-0); MYELOCYTE 1 % (0-0); NEUTROPHILS 55 % (42.0-75.2); PLATELET ESTIMATE DECREASED (NORMAL)
[2019-06-03 08:02] LABS: ANISOCYTOSIS 1+; TARGET CELLS 1+
--- NOTE | 2019-06-03 08:28 | NUR ---
PT BS 51 this morning on labs, JOSE MARTIN Abraham called, aware. Pt given juiceX3, BS rechecked, 55. Pt on bipap, not tolerating, states she "can't breathe". Put on high flow 15L NC to drink juice, sats at 78-70%. RT called to assist with bipap. Pt put back on bipap, sats increasing to 90s. BS rechecked, back down to 51. JOSE MARTIN Abraham notified again, PRN D50 12.5mg given, D5 IVF started to CHRISTOPH PICC at 50ml/hr. BBS checks q30min started. Will recheck BS. Pt tolerating PO but unable to keeps sats above 80% off bipap. Will continue to monitor.
[2019-06-03 09:22] LABS: ARTERIAL BLOOD GAS PCO2 45.2 mmHg (35-45); ARTERIAL BLOOD GAS pH 7.46 (7.35-7.45)
[2019-06-03 09:23] LABS: ARTERIAL BLD GAS O2 SATURATION 88.7 % (92-100); ARTERIAL BLD GAS TCO2 CT 32.8; ARTERIAL BLOOD GAS BASE EXCESS 6.8 (-2-2); ARTERIAL BLOOD GAS HCO3 31.4 meq/L (22-26); ARTERIAL BLOOD GAS PO2 54.9 mmHg (80-100)
--- NOTE | 2019-06-03 09:59 | NUR ---
The patient desatted in the 70s overnight. The patient is to be transferred to the ICU. The hospitalist attempted to contact the patient's son, Adriel. Voicemail left. URIEL notified Will at [facility]. Will informed URIEL that [facility] is closed today, due to the holiday. Will requested updates. URIEL faxed updates to Will. URIEL to continue to follow.
--- NOTE | 2019-06-03 10:15 | NUR ---
Patient arrives to ICU on Bipap. Report received from GEORGE Edwards. Patient VS WNL. Assessment completed. Will continue to monitor.
--- NOTE | 2019-06-03 10:31 | NUR ---
Pt transferred to ICU 1 on bipap, last BS 68, rest of D50 12.5mg given, pt still on D5 at 50ml/hr. Report given to GEORGE Duran. All questions answered at this time.
--- NOTE | 2019-06-03 11:00 | NUR ---
Patient BP hypotensive. Dr. Alex called. Orders for levophed received. Family called to come in for family meeting.
--- NOTE | 2019-06-03 12:00 | NUR ---
After meeting with Dr. Alex, patient and family decide to keep her a full code and intubate if needed.
--- NOTE | 2019-06-03 12:23 | NUR ---
Vancomycin Initial Dosing Pharmacy Note Ordering provider: MD JAKY Indication/duration: EMPIRIC LABS: WBC 6.5, SCr 1.4, CrCl ~40 Maintenance dose: 1.25 grams every 24 hours Trough goal: 15-20 ug/mL
[2019-06-03 12:39] LABS: ALBUMIN 2.2 gm/dL (3.5-5.0); BILIRUBIN UNCONJUGATED 0.9 mg/dL (0.0-1.1); BILIRUBIN,DIRECT 0.8 mg/dL (0.0-0.4); BILIRUBIN,TOTAL 1.7 mg/dL (0.0-1.0); TOTAL PROTEIN 5.4 gm/dL (6.4-8.2)
--- NOTE | 2019-06-03 15:00 | NUR ---
Patient continuing to maintain SP02 on Bipap. Will continue to monitor
[2019-06-03 18:04] LABS: CALCIUM 7.6 mg/dL (8.4-10.2); CREATININE, serum 1.55 (0.52-1.25); MAGNESIUM 1.6 mg/dL (1.6-2.3); PHOSPHOROUS 3.2 mg/dL (2.5-4.5)
--- NOTE | 2019-06-03 18:15 | NUR ---
Thoracentesis performed at this time by Dr. Rock. 800 cc pleural fluid removed from left side.
[2019-06-03 19:22] LABS: PLEURAL FLUID RBC 4000 /mm3 (0-0); PLEURAL FLUID WBC 429 /mm3
--- NOTE | 2019-06-03 19:30 | NUR ---
Bedside report given to GEORGE Hansen. Care turned over at this time.
[2019-06-03 19:36] LABS: GLUCOSE,PLEURAL FLUID 120 mg/dL
[2019-06-03 19:37] LABS: TOTAL PROTEIN,PLEURAL FLUID < 2.0 gm/dL
--- NOTE | 2019-06-03 20:00 | NUR ---
PATIENT BREATHING EASY RELAXED, COMPLAINS OF LIP SORENESS, DRYING OF MOUTH, REMOVED BIPAP, PLACED ON AIRFLOW MASK AT 6 L, WATER PO, CLEANED LIPS AND USED MOISTURISER, HAD REPLACE BIPAP, CAUSE SATS FELL TO 88% WITH IN 10 MINUTES
[2019-06-03 20:29] LABS: PLEURAL FLUID APPEARANCE CLEAR; PLEURAL FLUID COLOR AMBER
[2019-06-04] VITALS (905 sets, daily range): BP systolic 76–150; BP diastolic 39–74; PULSE 81–94; TEMP 97.3–98.3; O2SAT 31–100
--- NOTE | 2019-06-04 00:16 | NUR ---
PATIENT ASLEEP AWAKENS EASILY, DENIES PAIN, WANTS TO WET LIPS, AND DRINK WATER, BIPAP REMOVED, MOISTENES LIPS AND DRINKS WATER, ROLLED TO RIGHT SIDE, BIPAP BACK IN PLACE, SATS LOWERED TO 92 % DURING LAPSE OF BIPAP
--- NOTE | 2019-06-04 07:15 | NUR ---
REPORT RECEIVED FROM GEORGE AVENDAÑO
[2019-06-04 07:17] LABS: BASO % 0.2 % (0.0-2.0); GRAN # 7.5 (1.4-6.5); GRAN % 86.4 % (42.2-75.2); LYMPH # 0.8 (1.2-3.4); LYMPH % 9.7 % (20.0-51.0); MEAN CELL VOLUME 90 fl (80.0-100.0); MEAN CORPUSCULAR HGB CONC 33 g/dl (33.0-37.0); MEAN PLATELET VOLUME 12.7 fl (7.4-10.4); MONO # 0.3 (0.1-0.6); MONO % 2.9 % (1.7-9.3); PLATELET COUNT 51 K/mm3 (130-400); REDCELL DISTRIBUTION WIDTH-CV 20.9 % (11.5-14.5)
[2019-06-04 07:21] LABS: HEMATOCRIT 27.9 % (37.0-47.0); HEMOGLOBIN 9.3 g/dl (12.5-16.0); MEAN CORPUSCULAR HEMOGLOBIN 30 pg (27.0-31.0)
[2019-06-04 07:30] LABS: ALBUMIN 2.3 gm/dL (3.5-5.0); CALCIUM 7.3 mg/dL (8.4-10.2); CREATININE, serum 1.46 (0.52-1.25); MAGNESIUM 1.6 mg/dL (1.6-2.3); PHOSPHOROUS 3.9 mg/dL (2.5-4.5); POTASSIUM 3.6 mmol/L (3.4-5.0); TOTAL PROTEIN 5.4 gm/dL (6.4-8.2)
--- NOTE | 2019-06-04 09:00 | NUR ---
PATIENT CHANGED TO AIRVO. SHE IS TOLERATING WELL
--- NOTE | 2019-06-04 09:45 | NUR ---
OBTAINED PT'S INCRUSE FROM MEDICAL MEDICATION ROOM. UPON ARRIVAL TO PT'S ROOM IN ICU IT WAS FOUND TO BE CANCELLED BY DR. STARKEY. MEDICATION NOT GIVEN.
[2019-06-04 11:37] LABS: ARTERIAL BLOOD GAS pH 7.42 (7.35-7.45)
[2019-06-04 11:38] LABS: ARTERIAL BLD GAS O2 SATURATION 91.7 % (92-100); ARTERIAL BLOOD GAS PCO2 54.2 mmHg (35-45); ARTERIAL BLOOD GAS PO2 64.5 mmHg (80-100)
--- NOTE | 2019-06-04 13:00 | NUR ---
PATIENT DOING WELL. SHE HAS HAD MANY VISITORS AND IS ABLE TO HOLD CONVERSATION WITH AIRVO IN PLACE.
--- NOTE | 2019-06-04 15:00 | NUR ---
PATIENT CONTINUES TO DO WELL ON AIRVO. WILL CONTINUE TO MONITOR
--- NOTE | 2019-06-04 17:30 | NUR ---
PATIENT GIVEN BED BATH, SHE IS HELPED TO RECLINER. SHE TOLERATES THIS WELL. PATIENT MOVES WITH STANDBY ASSIST.
--- NOTE | 2019-06-04 19:31 | NUR ---
REPORT GIVEN TO GEORGE LAY
[2019-06-05] VITALS (703 sets, daily range): BP systolic 97–128; BP diastolic 54–74; PULSE 85–94; TEMP 97–98; O2SAT 42–100
--- NOTE | 2019-06-05 01:15 | NUR ---
Patient moderately confused, had oxygen off at this time, stated "she had to go to the bathroom." Patient educated on she has a gray catheter in place, patient placed back on oxygen and bed alarm in place. Will continue to monitor.
[2019-06-05 05:19] LABS: BASO % 0.1 % (0.0-2.0); GRAN # 7.3 (1.4-6.5); GRAN % 86.7 % (42.2-75.2); LYMPH # 0.6 (1.2-3.4); LYMPH % 7.5 % (20.0-51.0); MEAN CELL VOLUME 89 fl (80.0-100.0); MEAN CORPUSCULAR HGB CONC 33 g/dl (33.0-37.0); MEAN PLATELET VOLUME 12.4 fl (7.4-10.4); MONO # 0.4 (0.1-0.6); MONO % 4.9 % (1.7-9.3); PLATELET COUNT 58 K/mm3 (130-400); RED BLOOD COUNT 3.21 M/mm3 (4.10-5.30); REDCELL DISTRIBUTION WIDTH-CV 20.9 % (11.5-14.5)
[2019-06-05 05:20] LABS: HEMATOCRIT 28.5 % (37.0-47.0); HEMOGLOBIN 9.5 g/dl (12.5-16.0); MEAN CORPUSCULAR HEMOGLOBIN 30 pg (27.0-31.0)
[2019-06-05 05:33] LABS: ALBUMIN 2.5 gm/dL (3.5-5.0); BILIRUBIN,TOTAL 1.9 mg/dL (0.0-1.0); CALCIUM 7.3 mg/dL (8.4-10.2); CREATININE, serum 1.51 (0.52-1.25); MAGNESIUM 1.6 mg/dL (1.6-2.3); PHOSPHOROUS 4.4 mg/dL (2.5-4.5); POTASSIUM 3.4 mmol/L (3.4-5.0)
[2019-06-05 06:03] LABS: ARTERIAL BLD GAS O2 SATURATION 94.1 % (92-100); ARTERIAL BLD GAS TCO2 CT 37.3; ARTERIAL BLOOD GAS BASE EXCESS 10.3 (-2-2); ARTERIAL BLOOD GAS HCO3 35.7 meq/L (22-26); ARTERIAL BLOOD GAS PCO2 52.4 mmHg (35-45); ARTERIAL BLOOD GAS PO2 74.3 mmHg (80-100); ARTERIAL BLOOD GAS pH 7.45 (7.35-7.45)
--- NOTE | 2019-06-05 10:45 | NUR ---
Will reports they are still awaiting the patient's insurance to send the letter of approval. BREAKER UP student faxed updates. financial services representative will continue to follow.
--- NOTE | 2019-06-05 14:13 | NUR ---
Follow up visit from the sheet rock layer. Chaplain vidalyed with patient. No other needs right now.
[2019-06-06] VITALS (738 sets, daily range): BP systolic 86–121; BP diastolic 42–76; PULSE 82–95; TEMP 97.3–98; O2SAT 78–100
--- NOTE | 2019-06-06 | NUR ---
Patient switched to BIPAP from airvo. Patient not pleased with the idea but SKEWER UP and this RN explained to patient the need for BIPAP. Patient agreed to wear BIPAP.
--- NOTE | 2019-06-06 02:10 | NUR ---
Patient regularly sitting up and trying to remove BIPAP mask and get out of bed. Able to reorient patient an get her to remain in bed. Patient has also had to be reminded that she has a gray catheter in place. Discussed patient status with LEXI Lane and revieved new order for PRN medication-see orders and EMAR.
[2019-06-06 06:32] LABS: BASO % 0.2 % (0.0-2.0); EOS % 0.2 % (0-4.0); GRAN # 4.8 (1.4-6.5); GRAN % 87.1 % (42.2-75.2); LYMPH # 0.3 (1.2-3.4); LYMPH % 4.5 % (20.0-51.0); MEAN CELL VOLUME 90 fl (80.0-100.0); MEAN CORPUSCULAR HGB CONC 33 g/dl (33.0-37.0); MEAN PLATELET VOLUME 11.1 fl (7.4-10.4); MONO # 0.4 (0.1-0.6); MONO % 7.1 % (1.7-9.3); REDCELL DISTRIBUTION WIDTH-CV 21.4 % (11.5-14.5)
[2019-06-06 06:40] LABS: HEMATOCRIT 28.9 % (37.0-47.0); HEMOGLOBIN 9.4 g/dl (12.5-16.0); MEAN CORPUSCULAR HEMOGLOBIN 29 pg (27.0-31.0)
[2019-06-06 06:41] LABS: PLATELET COUNT 48 K/mm3 (130-400)
[2019-06-06 06:44] LABS: ALBUMIN 2.5 gm/dL (3.5-5.0); BILIRUBIN,TOTAL 1.7 mg/dL (0.0-1.0); CALCIUM 7.6 mg/dL (8.4-10.2); CREATININE, serum 1.34 (0.52-1.25); MAGNESIUM 1.5 mg/dL (1.6-2.3); PHOSPHOROUS 3.2 mg/dL (2.5-4.5); POTASSIUM 3.3 mmol/L (3.4-5.0); TOTAL PROTEIN 5.7 gm/dL (6.4-8.2)
[2019-06-06 07:37] LABS: ARTERIAL BLD GAS O2 SATURATION 93.6 % (92-100); ARTERIAL BLD GAS TCO2 CT 40.9; ARTERIAL BLOOD GAS BASE EXCESS 14.1 (-2-2); ARTERIAL BLOOD GAS HCO3 39.3 meq/L (22-26); ARTERIAL BLOOD GAS PCO2 53.2 mmHg (35-45); ARTERIAL BLOOD GAS PO2 70.2 mmHg (80-100); ARTERIAL BLOOD GAS pH 7.49 (7.35-7.45)
--- NOTE | 2019-06-06 19:08 | NUR ---
Report given to Lubna VAZQUEZ and care transfered.
--- NOTE | 2019-06-06 19:10 | NUR ---
Bedside report received from GEORGE Peck.
--- NOTE | 2019-06-06 20:00 | NUR ---
Patient resting sitting up in bed speaking with family at bedside. Patient is alert and oriented x3. Some confusion in conversation and she forgets what she was talking about. When speaking with her son he asked about the inspection of her house and the patient went on to list the food that was in her refrigerator. AIRVO in place, Patient saturating well. Vitals obtained and are stable. Assessment complete. Lungs are clear in all vieira as well as being diminished in all vieira. Patient has an audible heart murmur, but rate and rhythm remain regular. Bowel sounds active x4. Patient does have generalized edema that is located in all extremities and her trunk. Patient does have weeping edema to her breasts. Pulses are palpable in all extremities. Zhong is draining clear yellow urine. Patient has complaints of low back pain rated 6/10 that is dull and sometimes piercing with movement. Medication to be provided. Repositioned patient for comfort. She has no further needs at this time. Will continue to monitor. Call light within reach. Bed alarm on.
--- NOTE | 2019-06-06 23:45 | NUR ---
Patient asleep upon enterance into the room. Awakens to name and tactile stimulation. She is confused but alert. Follows commands. No complaints of pain, just wants to go back to sleep. Assessment complete with no changes from previous exam. Vitals remain stable. BP has been 90's systolic and above with MAP's in the 70-80's. Have not needed to restart levophed. Patient has no further needs at this time. Will continue to monitor. Call light within reach.
[2019-06-07] VITALS (570 sets, daily range): BP systolic 94–106; BP diastolic 50–64; PULSE 82–88; TEMP 97.4–98; O2SAT 65–100
--- NOTE | 2019-06-07 00:35 | NUR ---
Patient sitting upright in bed breathing heavily. When asked what was wrong patient replied "I was hallucinating. I didn't know where I was. I was hallucinating, I've never done that before." Patient becomes very emotional and begins crying. Stayed at patient's bedside with her. Spoke with her about her fears. Let her know that ICU delirium is a common issue when in the hospital for so long. Remained with patient until she calmed down and stated that she no longer needed anything. Will continue to monitor. Call light within reach.
--- NOTE | 2019-06-07 04:00 | NUR ---
Patient awake at this time, but slightly drowsy. She is A+Ox3 with some confusion with conversation. Vitals obtained and remain stable. Assessment complete with no changes from previous exam. Patient requests to go back to sleep. Notified RT Roel so that patient can be put back on the BiPAP.
[2019-06-07 06:06] LABS: MEAN CELL VOLUME 91 fl (80.0-100.0); MEAN CORPUSCULAR HGB CONC 32 g/dl (33.0-37.0); RED BLOOD COUNT 2.75 M/mm3 (4.10-5.30); REDCELL DISTRIBUTION WIDTH-CV 21.5 % (11.5-14.5)
[2019-06-07 06:13] LABS: HEMATOCRIT 25.1 % (37.0-47.0); HEMOGLOBIN 8.1 g/dl (12.5-16.0); MEAN CORPUSCULAR HEMOGLOBIN 29 pg (27.0-31.0)
[2019-06-07 06:14] LABS: PLATELET COUNT 40 K/mm3 (130-400)
[2019-06-07 06:15] LABS: ALBUMIN 2.5 gm/dL (3.5-5.0); BILIRUBIN,TOTAL 1.5 mg/dL (0.0-1.0); CALCIUM 7.7 mg/dL (8.4-10.2); CREATININE, serum 1.39 (0.52-1.25); MAGNESIUM 1.9 mg/dL (1.6-2.3); PHOSPHOROUS 3.8 mg/dL (2.5-4.5); POTASSIUM 3.8 mmol/L (3.4-5.0); TOTAL PROTEIN 5.7 gm/dL (6.4-8.2)
[2019-06-07 06:55] LABS: BAND 13 % (0-10); LYMPHOCYTE 6 % (20.0-51.0); NEUTROPHILS 80 % (42.0-75.2)
[2019-06-07 06:58] LABS: PLATELET ESTIMATE DECREASED (NORMAL)
--- NOTE | 2019-06-07 07:02 | NUR ---
Bedside report given to GEORGE Duran
--- NOTE | 2019-06-07 07:15 | NUR ---
BEDSIDE REPORT RECEIVED FROM GEORGE ESCOBEDO
--- NOTE | 2019-06-07 14:00 | NUR ---
PATIENT HAS SLEPT FOR APPROX 3 HOURS TODAY. SHE HAS HAD NO COMPLAINTS AND RESTED WELL. WILL CONTINUE TO MONITOR.
--- NOTE | 2019-06-07 15:24 | NUR ---
[employer] Setter spoke with Will at [facility] who advised the [employer] and [facility] have agreed on a contract, but the contract is awaiting signature from [employer] [employer]. URIEL faxed updates and will continue to follow.
--- NOTE | 2019-06-07 19:25 | NUR ---
REPORT GIVEN TO GEORGE ESCOBEDO. PATIENT RESTING IN BED WITH AIRVO IN PLACE. ALL VS WNL. CARE TURNED OVER AT THIS TIME.
--- NOTE | 2019-06-07 19:25 | NUR ---
Bedside report received from GEORGE Duran.
--- NOTE | 2019-06-07 20:00 | NUR ---
Patient sitting up in bed at this time with oxygen off. Assisted with putting AIRVO back in place. Vitals obtained and are stable. Assessment complete. No changes from previous exams. Patient has no current complaints of pain. No signs of distress. Patient is alert and conversation is confused. Patient has no further needs. Will continue to monitor. Call light within reach.
[2019-06-08] VITALS (1244 sets, daily range): BP systolic 98–115; BP diastolic 35–70; PULSE 71–89; TEMP 97.2–98; O2SAT 46–100
--- NOTE | 2019-06-08 | NUR ---
Patient sleeping at this time, but awakens to name. Patient is confused and asks questions like "is there someone sitting in that chair?", "did the baby make it?". Patient is hallucinating and having some delirium. Vitals obtained and remain stable. Assessment complete with no changes from previous exam. No complaints of pain at this time. Will continue to monitor. Call light within reach.
--- NOTE | 2019-06-08 02:00 | NUR ---
Patient requests to get up to the restroom. Assisted to bedside commode. While patient was sitting on the commode she went limp like she fell asleep, called patient's name and she immediately woke up. Patient sat on the commode for 20mins with minimal success. Patient produced one small hard stool. Patient returns to bed and is unsteady on her feet. Requires much assistance to keep steady. Patient attached to unit monitoring equipment. No further needs at this time. Bed alarm on.
--- NOTE | 2019-06-08 04:00 | NUR ---
Patient resting in bed. Has pulled AIRVO off onto her forehead. Helped reposition AIRVO. Vitals obtained and remain stable. Patient has no complaints of pain other than some mild chronic pain in her lower back. Assessment complete with no changes from previous exam. No further needs at this time. Will continue to monitor. Call light within reach.
[2019-06-08 05:21] LABS: MEAN CELL VOLUME 92 fl (80.0-100.0); MEAN CORPUSCULAR HGB CONC 32 g/dl (33.0-37.0); MEAN PLATELET VOLUME 12.6 fl (7.4-10.4); RED BLOOD COUNT 2.83 M/mm3 (4.10-5.30); REDCELL DISTRIBUTION WIDTH-CV 21.2 % (11.5-14.5)
[2019-06-08 05:24] LABS: HEMATOCRIT 25.9 % (37.0-47.0); HEMOGLOBIN 8.4 g/dl (12.5-16.0); MEAN CORPUSCULAR HEMOGLOBIN 30 pg (27.0-31.0)
[2019-06-08 05:25] LABS: PLATELET COUNT 49 K/mm3 (130-400)
[2019-06-08 05:26] LABS: ALBUMIN 2.6 gm/dL (3.5-5.0); BILIRUBIN,TOTAL 1.6 mg/dL (0.0-1.0); CALCIUM 8.7 mg/dL (8.4-10.2); CREATININE, serum 1.38 (0.52-1.25); MAGNESIUM 1.9 mg/dL (1.6-2.3); PHOSPHOROUS 3.7 mg/dL (2.5-4.5); POTASSIUM 3.6 mmol/L (3.4-5.0)
[2019-06-08 05:59] LABS: BAND 12 % (0-10); LYMPHOCYTE 14 % (20.0-51.0); METAMYELOCYTE 3 % (0-0); NEUTROPHILS 69 % (42.0-75.2); PLATELET ESTIMATE DECREASED (NORMAL)
[2019-06-08 06:00] LABS: ANISOCYTOSIS 3+
[2019-06-08 06:01] LABS: OVALOCYTES 1+; STOMATOCYTE 1+
--- NOTE | 2019-06-08 07:25 | NUR ---
Bedside report given to GEORGE Berg
[2019-06-09] VITALS (1251 sets, daily range): BP systolic 90–114; BP diastolic 40–97; PULSE 65–100; TEMP 97.4–97.9; O2SAT 54–100
[2019-06-09 05:54] LABS: MEAN CELL VOLUME 93 fl (80.0-100.0); MEAN CORPUSCULAR HGB CONC 33 g/dl (33.0-37.0); MEAN PLATELET VOLUME 11.2 fl (7.4-10.4); RED BLOOD COUNT 2.94 M/mm3 (4.10-5.30); REDCELL DISTRIBUTION WIDTH-CV 21.2 % (11.5-14.5)
[2019-06-09 05:57] LABS: HEMATOCRIT 27.2 % (37.0-47.0); HEMOGLOBIN 8.9 g/dl (12.5-16.0); MEAN CORPUSCULAR HEMOGLOBIN 30 pg (27.0-31.0)
[2019-06-09 05:58] LABS: PLATELET COUNT 42 K/mm3 (130-400)
[2019-06-09 06:10] LABS: CALCIUM 8.7 mg/dL (8.4-10.2); CREATININE, serum 1.58 (0.52-1.25); POTASSIUM 3.3 mmol/L (3.4-5.0)
[2019-06-09 06:22] LABS: ANISOCYTOSIS 3+; BAND 18 % (0-10); LYMPHOCYTE 12 % (20.0-51.0); METAMYELOCYTE 2 % (0-0); NEUTROPHILS 64 % (42.0-75.2); OVALOCYTES 1+; PLATELET ESTIMATE DECREASED (NORMAL)
--- NOTE | 2019-06-09 07:10 | NUR ---
Bedside report recieved from GEORGE Newman. Patient on Airvo at 35L and 54% FiO2. RT in room at this time to make adjustments as necessary. Patient assisted to position in bed for comfort. CHRISTOPH PICC uncomplicated and locked. Zhong with dependent drainage noted. Care assumed at this time.
[2019-06-09 10:26] LABS: ARTERIAL BLD GAS O2 SATURATION 83.8 % (92-100); ARTERIAL BLD GAS TCO2 CT 35.5; ARTERIAL BLOOD GAS BASE EXCESS 9.7 (-2-2); ARTERIAL BLOOD GAS HCO3 34.1 meq/L (22-26); ARTERIAL BLOOD GAS PCO2 45.6 mmHg (35-45); ARTERIAL BLOOD GAS PO2 50.7 mmHg (80-100); ARTERIAL BLOOD GAS pH 7.49 (7.35-7.45)
[2019-06-10] VITALS (841 sets, daily range): BP systolic 90–102; BP diastolic 47–61; PULSE 75–86; TEMP 97.6–99; O2SAT 54–99
--- NOTE | 2019-06-10 02:00 | NUR ---
Noted that patient had blood on her face, after cleaning, the location of the blood was found to be the right corner of her lip. Patient was placed on the airvo and told to hold pressure with a clean gauze pad to stop bleeding. Patient tolerating airvo well and was able to follow directions.
[2019-06-10 04:52] LABS: BASO % 0.2 % (0.0-2.0); GRAN % 79.2 % (42.2-75.2); LYMPH # 0.7 (1.2-3.4); LYMPH % 14.1 % (20.0-51.0); MEAN CELL VOLUME 94 fl (80.0-100.0); MEAN CORPUSCULAR HGB CONC 31 g/dl (33.0-37.0); MONO # 0.3 (0.1-0.6); MONO % 5.1 % (1.7-9.3); RED BLOOD COUNT 3.07 M/mm3 (4.10-5.30); REDCELL DISTRIBUTION WIDTH-CV 21.2 % (11.5-14.5)
[2019-06-10 04:55] LABS: HEMATOCRIT 28.9 % (37.0-47.0); HEMOGLOBIN 8.9 g/dl (12.5-16.0); MEAN CORPUSCULAR HEMOGLOBIN 29 pg (27.0-31.0)
[2019-06-10 04:56] LABS: PLATELET COUNT 41 K/mm3 (130-400)
[2019-06-10 05:06] LABS: ALBUMIN 2.5 gm/dL (3.5-5.0); BILIRUBIN,TOTAL 1.7 mg/dL (0.0-1.0); CALCIUM 8.5 mg/dL (8.4-10.2); CREATININE, serum 1.77 (0.52-1.25); POTASSIUM 3.9 mmol/L (3.4-5.0); TOTAL PROTEIN 6.1 gm/dL (6.4-8.2)
--- NOTE | 2019-06-10 09:33 | NUR ---
PT HAVING SOFT BP'S IN THE 80'S. SPOKE WITH , ORDER RECEIVED TO GIVEN NS 500ML BOLUS. MAY START LEVO IF BOLUS DOESNT HELP RESOLVE BP.
[2019-06-10 14:20] LABS: PATHOLOGY DIFF REVIEW OK
--- NOTE | 2019-06-10 16:47 | NUR ---
The patient is to discharge this day, 06/10 to [facility], room 107. [facility], [facility], [facility], and [facility] reported they cannot transport [facility] will transport the patient at 2100, all were in agreeance. [employer] student faxed discharge orders to . Dr. Bentley is accepting physician. Nurse to nurse phone number is or . There are no additional needs at this time.
--- NOTE | 2019-06-10 17:36 | NUR ---
PT TO BE PICKED UP AT 1930 FOR TRANSPORT TO [facility]. PT AND FAMILY UPDATED. REPORT CALLED TO STEPHANIE VAZQUEZ. ALL QUESTIONS ANSWERED.
--- NOTE | 2019-06-10 20:55 | NUR ---
CARE TRANSFERRED TO [facility]. ALL BELONGINGS SENT WITH PT. NO ACUTE S/S OF DISTRESS NOTED UPON DC FROM UNIT.
[2019-06-13 01:36] LABS: PLATELET ANTIBODY ID 1 XXX; PLATELET ANTIBODY ID 2 XXX
== END 2019-06-10 21:06 | DRG 189 ==
LOC: COL.ER 12:13 → MEDICAL 13:54 → ICU 13:54 → MEDICAL 05-27 14:27 → ICU 06-03 10:32
PROVIDERS: Emergency Medicine; Internal Medicine; Internal Medicine Pulmonary Disease; Nurse Practitioner Family; Physician Assistant; Student in an Organized Health Care Education/Training Program; ADMIT Hospitalist
PROC: 02HV33Z Insertion of Infusion Device into Superior Vena Cava, Percutaneous Approach (ICD-10-PCS; principal; 2019-05-24)
PROC: 0W9B3ZZ Drainage of Left Pleural Cavity, Percutaneous Approach (ICD-10-PCS; 2019-06-03)
PROC: 5A09357 Assistance with Respiratory Ventilation, Less than 24 Consecutive Hours, Continuous Positive Airway Pressure (ICD-10-PCS; 2019-06-09)
DX: J96.21 Acute and chronic respiratory failure with hypoxia (principal); J44.1 Chronic obstructive pulmonary disease with (acute) exacerbation; I50.30 Unspecified diastolic (congestive) heart failure; J90 Pleural effusion, not elsewhere classified; B37.49 Other urogenital candidiasis; E87.1 Hypo-osmolality and hyponatremia; R78.81 Bacteremia; E87.2 Acidosis; N39.0 Urinary tract infection, site not specified; I95.9 Hypotension, unspecified; E16.2 Hypoglycemia, unspecified; E87.6 Hypokalemia; N18.3 Chronic kidney disease, stage 3 (moderate); E87.8 Other disorders of electrolyte and fluid balance, not elsewhere classified; M79.7 Fibromyalgia; F17.210 Nicotine dependence, cigarettes, uncomplicated; G89.29 Other chronic pain; D63.1 Anemia in chronic kidney disease; D69.6 Thrombocytopenia, unspecified; K74.60 Unspecified cirrhosis of liver; K21.9 Gastro-esophageal reflux disease without esophagitis; I10 Essential (primary) hypertension; F32.9 Major depressive disorder, single episode, unspecified; I73.9 Peripheral vascular disease, unspecified; M35.00 Sjogren syndrome, unspecified; E89.0 Postprocedural hypothyroidism; Z99.81 Dependence on supplemental oxygen; Z90.49 Acquired absence of other specified parts of digestive tract; Z79.891 Long term (current) use of opiate analgesic; Z88.5 Allergy status to narcotic agent; Z79.51 Long term (current) use of inhaled steroids; E87.70 Fluid overload, unspecified; K76.0 Fatty (change of) liver, not elsewhere classified
CPT/HCPCS: 99223-AI; 99231-AI; 99232-AI; 99233-AI; A4216; C1751; J0696; J1644; J1940; J2060; J2405; J2543; J2920; J2930; J3010; J3370; J3475; J3480; J7030; J7040; J7050; J7060; J7070; J7120; J7512